=== PATIENT | male | born 1950 | race Caucasian/White ===

== ENCOUNTER 2016-12-30 14:20 | Emergency (ER) | payer OTHER, BC ==
[2016-12-30 14:26] VITALS: BP 117/75; PULSE 63; TEMP 97.7; BMI 28.8
--- NOTE | 2016-12-30 14:31 | PDOC ---
History of Present Illness - General History Source: Patient Exam Limitations: No Limitations <Camryn Guido - Last Filed: 12/30/16 14:38> - General History Source: Patient Exam Limitations: No Limitations - History of Present Illness Initial Comments: 12/30/16 14:48 PAtient is a 66 yo left hand dominant male with a significant PMH of diabetes, skin cancer, HIV and depression who presents to the ED with a complaints of a lesion on his right forearm for one day. Patient reports he developed a bump on his right forearm that he describes as itchy and red. He reports taking Benadryl with slight relief. He states the redness does not go away and has remained constant in its intensity. He does not think it is a mosquito bite. He denies going outside. He denies any new lotion, detergent or soap contacting his arm. He denies fever, chills, pain. He denies nausea, vomiting, or diarrhea. <Ramy Stokes - Last Filed: 12/30/16 14:56> - General Chief Complaint: Rash Stated Complaint: RFA RASH Time Seen by Provider: 12/30/16 14:22 Past History - Past Medical History Cancer: Yes (SKIN CANCER) Diabetes: Yes (diabetic neuropathy) HIV: Yes Psychiatric Problems: Yes (DEPRESSION) - Immunization History Immunization Up to Date: No - Psycho/Social/Smoking Cessation Hx Anxiety: Yes Suicidal Ideation: No Smoking History: Never smoked Have you smoked in the past 12 months: No Number of Cigarettes Smoked Daily: 0 Information on smoking cessation initiated: No Hx Alcohol Use: No Drug/Substance Use Hx: No Substance Use Type: None Hx Substance Use Treatment: No <Camryn Guido - Last Filed: 12/30/16 14:38> <Ramy Stokes - Last Filed: 12/30/16 14:56> - Past Medical History Allergies/Adverse Reactions: Allergies Allergy/AdvReac Type Severity Reaction Status Date / Time Tetracyclines Allergy Verified 12/30/16 14:21 Home Medications: Ambulatory Orders Abacavir/Dolutegravir/Lamivudi [Triumeq Tablet] 1 each PO DAILY 08/22/15 Cholecalciferol (Vitamin D3) [Vitamin D] 1,000 unit PO DAILY 08/22/15 Diazepam 7.5 mg PO DAILY 08/22/15 Diazepam [Valium] 2.5 mg PO ONCE 08/22/15 Diazepam [Valium] 5 mg PO ONCE 08/22/15 Divalproex [Depakote -] 500 mg PO BID 08/22/15 Duloxetine HCl [Cymbalta] 60 mg PO BID 08/22/15 Gabapentin 300 mg PO TID 08/22/15 Metformin HCl [Glucophage] 500 mg PO BID 08/22/15 Multivitamins [Tab-A-Vit -] 1 tab PO DAILY 08/22/15 Thiamine HCl [Vitamin B1] 100 mg PO DAILY 08/22/15 Trazodone HCl 100 mg PO BID 08/22/15 Zolpidem Tartrate [Ambien] 10 mg PO HS 08/22/15 Diphenhydramine [Benadryl 1% Cream -] 1 applic TP BID #1 tube 12/30/16 Hydrocortisone 0.5% Ointment [Hytone 0.5% Ointment -] 1 applic TP BID #1 tube Review of Systems - Review of Systems Able to Perform ROS?: Yes Comments:: 12/30/16 14:49 GENERAL/CONSTITUTIONAL: No: fever, chills, weakness, loss of appetite. MUSCULOSKELETAL: No: back pain, neck pain, joint pain, muscle swelling or pain SKIN: + lesions, itching, redness pallor, rash or easy bruising. All Other Systems: Reviewed and Negative <Ramy Stokes - Last Filed: 12/30/16 14:56> *Physical Exam - Vital Signs Last Vital Signs Temp Pulse Resp BP Pulse Ox 97.7 F 63 18 117/75 99 12/30/16 14:20 12/30/16 14:20 12/30/16 14:20 12/30/16 14:20 12/30/16 14:20 <Camryn Guido - Last Filed: 12/30/16 14:38> - Vital Signs Last Vital Signs Temp Pulse Resp BP Pulse Ox 97.7 F 63 18 117/75 99 12/30/16 14:20 12/30/16 14:20 12/30/16 14:20 12/30/16 14:20 12/30/16 14:20 - Physical Exam Comments: 12/30/16 14:49 GENERAL: The patient is in no acute distress. HEAD: Normal with no signs of trauma. EYES: PERRLA, EOMI, sclera anicteric, conjunctiva clear. ENT: Ears normal, nares patent, oropharynx clear without exudates. Moist mucous membranes. NECK: Normal range of motion, supple without lymphadenopathy, JVD, or masses. LUNGS: Breath sounds equal, clear to auscultation bilaterally. No wheezes, and no crackles. HEART:Regular rate and rhythm, normal S1 and S2 without murmur, rub or gallop. ABDOMEN: Soft, nontender, normoactive bowel sounds. No guarding, no rebound. EXTREMITIES: Normal range of motion, no edema. No clubbing or cyanosis. No erythema, or tenderness. NEUROLOGICAL: Cranial nerves II through XII grossly intact. Normal speech. No focal neurological deficits. MUSCULOSKELETAL: Back nontender to palpation, no CVA tenderness SKIN: + 1cm indurated erythematous skin lesion Warm, Dry, normal turgor, no rashes.. <Ramy Stokes - Last Filed: 12/30/16 14:56> Medical Decision Making - Medical Decision Making 12/30/16 14:31 A portion of this note was documented by scribe services under my direction. I have reviewed the details of the note, within reason, and agree with the documentation with the following case summary and management plan written by me. Nursing documentation reviewed and incorporated into medical decision making 12/30/16 14:38 66 to LHD m presenting to the ER with 1 cm erythematous lesion on forearm NO arthropod bites no fevers or chills NO increase in size Began yesterday No prior episodes like this Will discharge on topical treatment and warm compresses Follow up with PMD <Camryn Guido - Last Filed: 12/30/16 14:38> *DC/Admit/Observation/Transfer - Discharge Dispostion Admit: No <Camryn Guido - Last Filed: 12/30/16 14:38> - Attestations Scribe Attestion: 12/30/16 14:50 Documentation prepared by Ramy Stokes, acting as medical librarian for Camryn Guido MD. <Ramy Stokes - Last Filed: 12/30/16 14:56> Diagnosis at time of Disposition: Rash - Discharge Dispostion Disposition: HOME Condition at time of disposition: Stable - Prescriptions Prescriptions: Diphenhydramine [Benadryl 1% Cream -] 1 applic TP BID #1 tube Hydrocortisone 0.5% Ointment [Hytone 0.5% Ointment -] 1 applic TP BID #1 tube - Referrals Referrals: Felicitas Medeiros MD [Primary Care Provider] - - Patient Instructions Printed Discharge Instructions: DI for Rash, DI for Contact Dermatitis Additional Instructions: Mr. Santacruz Thank you for coming in to the ER Please apply both ointments to your rash Please apply warm compresses twice per day Please follow up with your primary care physician within 1 -2 days Return to the ER for redness that increases in size, fevers, chills, drainage, any other concerns or complaints
== END 2016-12-30 14:58 | disposition home or self-care (01) ==
LOC: SUPCPDRO 14:20 → FER 14:20
DX: R21 Rash and other nonspecific skin eruption (principal); E11.9 Type 2 diabetes mellitus without complications; Z21 Asymptomatic human immunodeficiency virus [HIV] infection status; F32.9 Major depressive disorder, single episode, unspecified; Z85.828 Personal history of other malignant neoplasm of skin
CPT/HCPCS: 72148-TC; 99282-25

== ENCOUNTER 2018-10-27 12:41 | Emergency (ER) | payer OTHER, BC | END 2018-10-27 15:20 | disposition home or self-care (01) | LOC: FER 12:41 ==

== ENCOUNTER 2024-06-01 03:59 | Inpatient (IN) | payer OTHER, BC ==
[2024-06-01] MEDS ORDERED: THROMBIN (BOVINE) 20,000 UNIT VIAL TP ONE ×2 (07:23→13:56)
[2024-06-01] MEDS ORDERED: ceFAZolin SODIUM 1 GM VIAL ONE ×3 (07:23→16:41)
[2024-06-01] MEDS ORDERED: DEXMEDETOMIDINE HCL 200 MCG/2 ML IVPB ONE (08:00)
[2024-06-01] MEDS ORDERED: ROCURONIUM BROMIDE 50 MG/5 ML VIAL ONE ×3 (08:02→14:57)
[2024-06-01] MEDS ORDERED: MIDAZOLAM HCL 2 MG/2 ML SINGLE DOSE VIAL ONE (08:03)
[2024-06-01] MEDS ORDERED: PROPOFOL 40 ML ONE (08:03)
[2024-06-01] MEDS ORDERED: HYDROmorphone HCl 2 MG/ML VIAL ONE (08:07)
[2024-06-01] MEDS ORDERED: EPINEPHrine 1:1000 P/F - 1 MG/ML AMP ONE (09:26)
[2024-06-01] MEDS ORDERED: PROPOFOL 20 ML ONE ×14 (09:29→18:37)
[2024-06-01] MEDS: ceFAZolin SODIUM 1 GM VIAL IVPB ONE ×2 (09:37→10:16)
[2024-06-01] MEDS: HYDROGEN PEROXIDE 473 ML PO ONE (10:17)
[2024-06-01] MEDS: THROMBIN (BOVINE) 20,000 UNIT VIAL TP ONE (10:17)
[2024-06-01] MEDS: EPINEPHrine 1:1,000 1,000 MCG/ML ML SQ ONE (10:18)
[2024-06-01] MEDS: ALBUMIN HUMAN 5% 250 ML IV SOLUTION IV ONE (12:15)
[2024-06-01 12:44] LABS: HEMATOCRIT 30.7 % (35.4-49); HEMOGLOBIN 10.7 GM/dL (11.7-16.9); MCH 34.4 pg (25.7-33.7); MCHC 34.8 g/dl (32.0-35.9); MEAN CELL VOLUME 98.7 fl (80-96); MEAN PLT VOLUME 7.4 fl (7.5-11.1); PLATELET COUNT 116 10^3/uL (134-434); RBC 3.11 M/mm3 (4.00-5.60); RDW 13.5 % (11.9-15.9); WHITE BLOOD COUNT 3.3 K/mm3 (4.0-10.0)
[2024-06-01] MEDS ORDERED: PHENYLEPHRINE HCL 10 MG/1 ML SINGLE DOSE VIAL ONE (12:44)
[2024-06-01 14:35] LABS: ARTERIAL BLD GAS O2 SATURATION 99.8 % (95-98); ARTERIAL BLOOD GAS PO2 453.6 mmHg (80-100); ARTERIAL BLOOD GAS pH 7.312 (7.350-7.450)
[2024-06-01] MEDS ORDERED: SUGAMMADEX SODIUM 200 MG/2 ML VIAL ONE (15:11)
[2024-06-01] MEDS ORDERED: TRANEXAMIC ACID 1000 MG/10 ML VIAL ONE (15:12)
[2024-06-01] MEDS ORDERED: SEVOFLURANE 250 ML BTL ONE (15:17)
[2024-06-01] MEDS ORDERED: DEXAMETHASONE SOD PHOSPHATE 4 MG/1 ML VIAL ONE (15:19)
[2024-06-01] MEDS ORDERED: ONDANSETRON 4 MG/2 ML VIAL ONE ×2 (15:19→17:25)
[2024-06-01] MEDS ORDERED: LIDOCAINE HCL/PF 2% SDV 5ML VIAL ONE (15:19)
[2024-06-01 16:52] LABS: HEMATOCRIT 34.7 % (35.4-49); MCH 33.4 pg (25.7-33.7); MCHC 34.7 g/dl (32.0-35.9); MEAN CELL VOLUME 96.4 fl (80-96); MEAN PLT VOLUME 7.6 fl (7.5-11.1); PLATELET COUNT 128 10^3/uL (134-434); RDW 14.6 % (11.9-15.9); WHITE BLOOD COUNT 4.5 K/mm3 (4.0-10.0)
[2024-06-01] MEDS ORDERED: ONDANSETRON 4 MG/2 ML VIAL IVPUSH PRN ×2 (17:52→19:44)
[2024-06-01 17:54] LABS: POTASSIUM 4.8 mmol/L (3.5-5.1)
[2024-06-01 17:56] LABS: ALBUMIN 2.6 g/dl (3.4-5.0); CALCIUM 7.8 mg/dL (8.5-10.1)
[2024-06-01 17:57] LABS: BLOOD UREA NITROGEN 13.7 mg/dL (7-18); MAGNESIUM 1.7 mg/dL (1.8-2.4)
[2024-06-01 18:00] LABS: PHOSPHOROUS 3.2 mg/dL (2.5-4.9)
[2024-06-01 18:01] LABS: BILIRUBIN,TOTAL 0.5 mg/dL (0.2-1); TOT PROT 5.1 g/dl (6.4-8.2)
[2024-06-01 18:04] LABS: CREATININE 0.6 mg/dL (0.55-1.3)
[2024-06-01] MEDS ORDERED: MAGNESIUM SULF 50% (8.12 MEQ/2 ML-1 GM VIAL) ONE (18:29)
[2024-06-01] MEDS: LACTATED RINGERS SOLUTION 1,000 ML IV SCH (23:38)
[2024-06-01] MEDS: HYDROmorphone *PCA* 10MG/50ML DISP.SYRIN PCA SCH (23:38)
[2024-06-02] MEDS: CEFAZOLIN 2 GM/D5W 2 GM/50 ML ML IVPB SCH ×2 (01:17→20:22)
[2024-06-02] MEDS: LACTATED RINGERS SOLUTION 1,000 ML IV SCH (01:23)
[2024-06-02] MEDS: LACTATED RINGERS SOLUTION 1,000 ML/1,000 ML INFUS.BAG IV SCH (01:24)
[2024-06-02] MEDS: ALBUMIN HUMAN 5% 250 ML IV SOLUTION IV ONE (01:24)
[2024-06-02] MEDS: oxyCODONE HCL 5 MG TABLET PO PRN (03:58)
[2024-06-02] MEDS: GABAPENTIN 300 MG CAPSULE PO SCH (06:17)
[2024-06-02] MEDS: SODIUM CHLORIDE 250 ML IV STA (06:25)
[2024-06-02] MEDS: NOREPINEPHRINE BITARTRATE 4,000 MCG in DEXTROSE 5%-WATER - 496 ML IV SCH (06:42)
[2024-06-02 07:30] LABS: HEMATOCRIT 25.4 % (35.4-49); HEMOGLOBIN 8.8 GM/dL (11.7-16.9); MCH 33.3 pg (25.7-33.7); MCHC 34.5 g/dl (32.0-35.9); MEAN CELL VOLUME 96.3 fl (80-96); MEAN PLT VOLUME 7.8 fl (7.5-11.1); PLATELET COUNT 127 10^3/uL (134-434); RBC 2.63 M/mm3 (4.00-5.60); RDW 14.9 % (11.9-15.9); WHITE BLOOD COUNT 7.3 K/mm3 (4.0-10.0)
[2024-06-02 07:55] LABS: POTASSIUM 5.3 mmol/L (3.5-5.1)
[2024-06-02 08:00] LABS: CALCIUM 7.6 mg/dL (8.5-10.1)
[2024-06-02 08:01] LABS: BLOOD UREA NITROGEN 17.8 mg/dL (7-18)
[2024-06-02 08:04] LABS: CREATININE 1.1 mg/dL (0.55-1.3)
[2024-06-02] MEDS: ABACAVIR/DOLUTEGRAVIR/LAMIVUDI (TRIUMEQ) TABLET PO SCH (11:37)
[2024-06-02] MEDS: PNEUMOC 20-VAL CONJ-DIP CRM/PF 0.5 ML SYRINGE IM ONE (11:48)
[2024-06-02] MEDS: ACETAMINOPHEN 1000 MG/100 ML BAG IVPB PRN (13:08)
[2024-06-02 16:02] LABS: HEMATOCRIT 24.9 % (35.4-49); MCH 34.1 pg (25.7-33.7); MCHC 32.2 g/dl (32.0-35.9); MEAN CELL VOLUME 105.8 fl (80-96); MEAN PLT VOLUME 7.9 fl (7.5-11.1); PLATELET COUNT 109 10^3/uL (134-434); RBC 2.35 M/mm3 (4.00-5.60); RDW 15.7 % (11.9-15.9); WHITE BLOOD COUNT 6.6 K/mm3 (4.0-10.0)
[2024-06-02 23:48] LABS: BASO % 0.2 % (0-2.0); EOS % 0.2 % (0-4.5); HEMATOCRIT 21.4 % (35.4-49); HEMOGLOBIN 7.2 GM/dL (11.7-16.9); LYMPH % 12.5 % (8-40); MCHC 33.8 g/dl (32.0-35.9); MEAN CELL VOLUME 97.6 fl (80-96); MEAN PLT VOLUME 7.6 fl (7.5-11.1); MONO % 9.4 % (3.8-10.2); NEUT % 77.7 % (42.8-82.8); PLATELET COUNT 95 10^3/uL (134-434); RBC 2.19 M/mm3 (4.00-5.60)
[2024-06-03] MEDS: oxyCODONE HCL 5 MG TABLET PO PRN (00:36)
[2024-06-03 07:12] LABS: ALBUMIN 2.2 g/dl (3.4-5.0); BLOOD UREA NITROGEN 11.8 mg/dL (7-18); CALCIUM 7.4 mg/dL (8.5-10.1); MAGNESIUM 1.7 mg/dL (1.8-2.4)
[2024-06-03 07:15] LABS: CREATININE 0.7 mg/dL (0.55-1.3)
[2024-06-03 07:16] LABS: BILIRUBIN,TOTAL 0.5 mg/dL (0.2-1); PHOSPHOROUS 1.9 mg/dL (2.5-4.9); TOT PROT 4.2 g/dl (6.4-8.2)
[2024-06-03 07:26] LABS: BASO % 0.1 % (0-2.0); EOS % 0.2 % (0-4.5); HEMATOCRIT 19.4 % (35.4-49); LYMPH % 13.4 % (8-40); MCH 33.8 pg (25.7-33.7); MCHC 34.8 g/dl (32.0-35.9); MEAN CELL VOLUME 97.3 fl (80-96); MEAN PLT VOLUME 7.8 fl (7.5-11.1); NEUT % 76.3 % (42.8-82.8); PLATELET COUNT 95 10^3/uL (134-434); RDW 14.4 % (11.9-15.9)
[2024-06-03 08:34] LABS: HEMOGLOBIN 6.8 GM/dL (11.7-16.9)
[2024-06-03] MEDS: MAGNESIUM 2GM/50ML STERILE WATER IVPB IVPB ONE (09:08)
[2024-06-03] MEDS: NAPH,MB-DB/K PH,MBDB POWDER PACKET PO ONE (09:08)
[2024-06-03] MEDS: CEFAZOLIN 2 GM/D5W 2 GM/50 ML ML IVPB SCH (17:16)
[2024-06-03] MEDS: BREXPIPRAZOLE (REXULTI) 1 MG TABLET (RESTRICTED TO PSYCIATRY) PO SCH (18:52)
[2024-06-03 18:54] LABS: BASO % 0.2 % (0-2.0); EOS % 0.4 % (0-4.5); HEMOGLOBIN 8.8 GM/dL (11.7-16.9); LYMPH % 10.9 % (8-40); MCH 33.2 pg (25.7-33.7); MCHC 35.1 g/dl (32.0-35.9); MEAN CELL VOLUME 94.6 fl (80-96); MEAN PLT VOLUME 7.4 fl (7.5-11.1); MONO % 9.3 % (3.8-10.2); NEUT % 79.2 % (42.8-82.8); PLATELET COUNT 118 10^3/uL (134-434); RBC 2.64 M/mm3 (4.00-5.60); RDW 14.9 % (11.9-15.9); WHITE BLOOD COUNT 7.5 K/mm3 (4.0-10.0)
[2024-06-03 21:20] LABS: BASO % 0.3 % (0-2.0); EOS % 0.4 % (0-4.5); HEMATOCRIT 22.8 % (35.4-49); LYMPH % 14.6 % (8-40); MCH 32.9 pg (25.7-33.7); MCHC 34.9 g/dl (32.0-35.9); MEAN CELL VOLUME 94.2 fl (80-96); MEAN PLT VOLUME 7.3 fl (7.5-11.1); MONO % 9.3 % (3.8-10.2); NEUT % 75.4 % (42.8-82.8); PLATELET COUNT 107 10^3/uL (134-434); RBC 2.43 M/mm3 (4.00-5.60); RDW 15.1 % (11.9-15.9)
[2024-06-03] MEDS ORDERED: traZODone HCL 50 MG TABLET (FP) ONE (21:35)
[2024-06-03] MEDS: DIVALPROEX SODIUM 500 MG TABLET E.C. PO SCH (21:42)
[2024-06-03] MEDS: traZODone HCL 100 MG TABLET (FP) PO SCH (21:43)
[2024-06-03] MEDS ORDERED: diazePAM 5 MG TABLET PO SCH (22:00)
[2024-06-04] MEDS: diazePAM CARPU-JECT 10 MG/2 ML DISP.SYRIN IVPUSH PRN (04:12)
[2024-06-04] MEDS: diazePAM CARPU-JECT 10 MG/2 ML DISP.SYRIN IVPUSH ONE (07:15)
[2024-06-04 07:21] LABS: BASO % 0.2 % (0-2.0); EOS % 2.6 % (0-4.5); HEMATOCRIT 23.5 % (35.4-49); HEMOGLOBIN 8.2 GM/dL (11.7-16.9); MCH 33.6 pg (25.7-33.7); MCHC 35.1 g/dl (32.0-35.9); MEAN CELL VOLUME 95.7 fl (80-96); MEAN PLT VOLUME 7.8 fl (7.5-11.1); MONO % 9.3 % (3.8-10.2); NEUT % 66.9 % (42.8-82.8); PLATELET COUNT 115 10^3/uL (134-434); RBC 2.45 M/mm3 (4.00-5.60); RDW 15.1 % (11.9-15.9); WHITE BLOOD COUNT 5.9 K/mm3 (4.0-10.0)
[2024-06-04 07:33] LABS: POTASSIUM 3.8 mmol/L (3.5-5.1)
[2024-06-04 07:44] LABS: ALBUMIN 2.3 g/dl (3.4-5.0); BLOOD UREA NITROGEN 8.7 mg/dL (7-18); CALCIUM 7.9 mg/dL (8.5-10.1); MAGNESIUM 2.1 mg/dL (1.8-2.4)
[2024-06-04 07:48] LABS: BILIRUBIN,TOTAL 0.4 mg/dL (0.2-1); CREATININE 0.6 mg/dL (0.55-1.3); TOT PROT 4.9 g/dl (6.4-8.2)
[2024-06-04] MEDS: HYDROmorphone HCL CARPU-JECT 2 MG/1 ML DISP.SYRIN IVPUSH ONE (08:46)
[2024-06-04] MEDS ORDERED: BREXPIPRAZOLE (REXULTI) 1 MG TABLET (RESTRICTED TO PSYCIATRY) PO SCH ×2 (10:00→18:00)
[2024-06-04] MEDS ORDERED: ABACAVIR/DOLUTEGRAVIR/LAMIVUDI (TRIUMEQ) TABLET PO SCH (10:00)
[2024-06-04] MEDS: DULoxetine HCL 30 MG CAPSULE.DR PO SCH (10:01)
[2024-06-04] MEDS: NAPH,MB-DB/K PH,MBDB POWDER PACKET PO ONE (10:01)
[2024-06-04] MEDS: CEFAZOLIN 2 GM/D5W 2 GM/50 ML ML IVPB SCH (13:36)
[2024-06-04] MEDS ORDERED: traZODone HCL 50 MG TABLET (FP) ONE (21:08)
[2024-06-05 07:23] LABS: BASO % 0.2 % (0-2.0); HEMATOCRIT 20.8 % (35.4-49); LYMPH % 18.2 % (8-40); MCH 32.8 pg (25.7-33.7); MCHC 33.8 g/dl (32.0-35.9); MEAN CELL VOLUME 96.9 fl (80-96); MEAN PLT VOLUME 7.3 fl (7.5-11.1); MONO % 9.8 % (3.8-10.2); NEUT % 67.8 % (42.8-82.8); PLATELET COUNT 113 10^3/uL (134-434); RBC 2.15 M/mm3 (4.00-5.60); RDW 14.9 % (11.9-15.9); WHITE BLOOD COUNT 3.5 K/mm3 (4.0-10.0)
[2024-06-05 08:09] LABS: BLOOD UREA NITROGEN 8.6 mg/dL (7-18); CALCIUM 7.7 mg/dL (8.5-10.1); MAGNESIUM 1.9 mg/dL (1.8-2.4)
[2024-06-05 08:12] LABS: BILIRUBIN,TOTAL 0.3 mg/dL (0.2-1); CREATININE 0.7 mg/dL (0.55-1.3); TOT PROT 4.7 g/dl (6.4-8.2)
[2024-06-05 08:13] LABS: PHOSPHOROUS 2.4 mg/dL (2.5-4.9)
[2024-06-05 12:21] LABS: BASO % 0.4 % (0-2.0); HEMATOCRIT 20.3 % (35.4-49); LYMPH % 20.3 % (8-40); MCH 32.9 pg (25.7-33.7); MCHC 34.1 g/dl (32.0-35.9); MEAN CELL VOLUME 96.5 fl (80-96); MEAN PLT VOLUME 7.2 fl (7.5-11.1); MONO % 11.5 % (3.8-10.2); NEUT % 62.8 % (42.8-82.8); PLATELET COUNT 115 10^3/uL (134-434); RDW 15.3 % (11.9-15.9); WHITE BLOOD COUNT 2.9 K/mm3 (4.0-10.0)
[2024-06-05 12:35] LABS: HEMOGLOBIN 6.9 GM/dL (11.7-16.9)
[2024-06-05] MEDS ORDERED: traZODone HCL 50 MG TABLET (FP) ONE (21:37)
[2024-06-05 22:13] LABS: HEMATOCRIT 23.2 % (35.4-49); HEMOGLOBIN 7.9 GM/dL (11.7-16.9); MCH 32.5 pg (25.7-33.7); MEAN CELL VOLUME 95.7 fl (80-96); MEAN PLT VOLUME 7.1 fl (7.5-11.1); PLATELET COUNT 118 10^3/uL (134-434); RBC 2.42 M/mm3 (4.00-5.60); RDW 15.7 % (11.9-15.9); WHITE BLOOD COUNT 3.3 K/mm3 (4.0-10.0)
[2024-06-05 22:40] LABS: INR 1.02 (0.83-1.09); PROTHROMBIN TIME (PATIENT) 11.5 SEC (9.7-13.0)
[2024-06-06 07:26] LABS: BASO % 0.3 % (0-2.0); EOS % 5.1 % (0-4.5); HEMATOCRIT 24.8 % (35.4-49); HEMOGLOBIN 8.6 GM/dL (11.7-16.9); LYMPH % 20.2 % (8-40); MCH 32.9 pg (25.7-33.7); MCHC 34.5 g/dl (32.0-35.9); MEAN CELL VOLUME 95.3 fl (80-96); MONO % 11.3 % (3.8-10.2); NEUT % 63.1 % (42.8-82.8); PLATELET COUNT 137 10^3/uL (134-434); RDW 15.7 % (11.9-15.9); WHITE BLOOD COUNT 3.1 K/mm3 (4.0-10.0)
[2024-06-06 07:27] LABS: POTASSIUM 4.3 mmol/L (3.5-5.1)
[2024-06-06 07:35] LABS: ALBUMIN 2.2 g/dl (3.4-5.0)
[2024-06-06 07:36] LABS: BLOOD UREA NITROGEN 7.6 mg/dL (7-18)
[2024-06-06 07:37] LABS: BILIRUBIN,TOTAL 0.4 mg/dL (0.2-1); MAGNESIUM 2.1 mg/dL (1.8-2.4); TOT PROT 5.1 g/dl (6.4-8.2)
[2024-06-06 07:39] LABS: CREATININE 0.6 mg/dL (0.55-1.3)
[2024-06-06] MEDS ORDERED: ACETAMINOPHEN INJECTION 100 ML ONE (13:03)
[2024-06-06] MEDS: oxyCODONE HCL 5 MG TABLET PO PRN (13:45)
[2024-06-06] MEDS ORDERED: traZODone HCL 50 MG TABLET (FP) ONE (20:32)
[2024-06-07] MEDS: ACETAMINOPHEN 1000 MG/100 ML BAG IVPB PRN (02:00)
[2024-06-07 07:23] LABS: HEMATOCRIT 22.4 % (35.4-49); MCH 33.5 pg (25.7-33.7); MCHC 35.7 g/dl (32.0-35.9); MEAN CELL VOLUME 94.1 fl (80-96); MEAN PLT VOLUME 6.7 fl (7.5-11.1); PLATELET COUNT 127 10^3/uL (134-434); RBC 2.38 M/mm3 (4.00-5.60); RDW 15.3 % (11.9-15.9); WHITE BLOOD COUNT 2.7 K/mm3 (4.0-10.0)
[2024-06-07 07:29] LABS: ALBUMIN 2.1 g/dl (3.4-5.0); BLOOD UREA NITROGEN 9.4 mg/dL (7-18); CALCIUM 8.1 mg/dL (8.5-10.1); MAGNESIUM 1.9 mg/dL (1.8-2.4)
[2024-06-07 07:33] LABS: CREATININE 0.6 mg/dL (0.55-1.3)
[2024-06-07 07:34] LABS: BILIRUBIN,TOTAL 0.4 mg/dL (0.2-1); TOT PROT 4.9 g/dl (6.4-8.2)
[2024-06-07 08:31] LABS: PHOSPHOROUS 2.9 mg/dL (2.5-4.9)
[2024-06-07] MEDS: LIDOCAINE 5% TOPICAL PATCH TP SCH (09:39)
[2024-06-07 09:55] LABS: ANISOCYTOSIS 0; MACROCYTOSIS 0
[2024-06-07] MEDS ORDERED: LIDOCAINE 4% PATCH TP PRN (11:32)
[2024-06-07] MEDS ORDERED: GABAPENTIN 400 MG CAPSULE PO SCH (11:47)
[2024-06-07] MEDS: GABAPENTIN 300 MG CAPSULE PO SCH (13:01)
[2024-06-07 13:33] VITALS: BMI 34.2
[2024-06-07] MEDS ORDERED: ONDANSETRON 4 MG/2 ML VIAL IVPUSH PRN (16:25)
[2024-06-07] MEDS ORDERED: diazePAM CARPU-JECT 10 MG/2 ML DISP.SYRIN IVPUSH PRN (16:25)
[2024-06-07] MEDS: CEFAZOLIN 2 GM/D5W 2 GM/50 ML ML IVPB SCH (18:02)
[2024-06-07] MEDS: DIVALPROEX SODIUM 500 MG TABLET E.C. PO SCH (21:29)
[2024-06-07] MEDS: traZODone HCL 100 MG TABLET (FP) PO SCH (21:29)
[2024-06-07] MEDS: oxyCODONE HCL 5 MG TABLET PO PRN (21:30)
[2024-06-07] MEDS: HEPARIN NA (PORCINE) 5,000 UNITS/ML 1ML VIAL SQ SCH (21:32)
[2024-06-07] MEDS: LIDOCAINE PATCH REMOVAL MC SCH (21:45)
[2024-06-07] MEDS ORDERED: LIDOCAINE PATCH REMOVAL MC SCH (22:00)
[2024-06-07] MEDS ORDERED: LIDOCAINE PATCH REMOVAL MC PRN ×2 (22:00)
[2024-06-08] MEDS: ACETAMINOPHEN 1000 MG/100 ML BAG IVPB ONE (02:22)
[2024-06-08] MEDS ORDERED: PROPOFOL 1,000,000 MCG/100 ML VIAL ONE (06:26)
[2024-06-08] MEDS ORDERED: RAPID SEQUENCE INTUBATION KIT NR ONE (06:26)
[2024-06-08] MEDS: BACLOFEN 10 MG TABLET (FP) PO PRN (08:10)
[2024-06-08] MEDS: LIDOCAINE 4% PATCH TP PRN (08:10)
[2024-06-08] MEDS: ABACAVIR/DOLUTEGRAVIR/LAMIVUDI (TRIUMEQ) TABLET PO SCH (08:11)
[2024-06-08 08:28] LABS: BASO % 0.6 % (0-2.0); EOS % 5.4 % (0-4.5); HEMATOCRIT 23.7 % (35.4-49); HEMOGLOBIN 8.2 GM/dL (11.7-16.9); LYMPH % 20.5 % (8-40); MCH 32.8 pg (25.7-33.7); MCHC 34.8 g/dl (32.0-35.9); MEAN CELL VOLUME 94.4 fl (80-96); MEAN PLT VOLUME 6.6 fl (7.5-11.1); NEUT % 60.5 % (42.8-82.8); PLATELET COUNT 166 10^3/uL (134-434); RBC 2.51 M/mm3 (4.00-5.60); RDW 15.2 % (11.9-15.9); WHITE BLOOD COUNT 3.1 K/mm3 (4.0-10.0)
[2024-06-08 08:52] LABS: ALBUMIN 2.1 g/dl (3.4-5.0); BLOOD UREA NITROGEN 8.4 mg/dL (7-18); CALCIUM 8.2 mg/dL (8.5-10.1); MAGNESIUM 1.9 mg/dL (1.8-2.4)
[2024-06-08 08:53] LABS: CREATININE 0.6 mg/dL (0.55-1.3)
[2024-06-08 08:55] LABS: TOT PROT 4.9 g/dl (6.4-8.2)
[2024-06-08 08:57] LABS: BILIRUBIN,TOTAL 0.3 mg/dL (0.2-1)
[2024-06-08] MEDS: DULoxetine HCL 30 MG CAPSULE.DR PO SCH (09:19)
[2024-06-08] MEDS: ENOXAPARIN NA (PORCINE) 40 MG/0.4 ML DISP.SYRIN SQ SCH (09:19)
[2024-06-08] MEDS: LIDOCAINE 5% TOPICAL PATCH TP SCH (09:20)
[2024-06-08] MEDS: BREXPIPRAZOLE (REXULTI) 1 MG TABLET (RESTRICTED TO PSYCIATRY) PO SCH (09:21)
[2024-06-08] MEDS: DOCUSATE SODIUM 100 MG CAPSULE (FP) PO SCH (15:34)
[2024-06-08] MEDS: BACITRACIN ZINC 15 GM TUBE TOPICAL OINTMENT TP SCH (15:34)
[2024-06-08] MEDS: POLYETHYLENE GLYCOL (HEALTHYLAX) 3350 17 GM PACKET PO SCH (15:35)
[2024-06-08] MEDS: SILVER SULFADIAZINE 1% TOP CREAM 400 GM JAR TP SCH (21:55)
[2024-06-09] MEDS ORDERED: ACETAMINOPHEN 1000 MG/100 ML BAG IVPB PRN (07:11)
[2024-06-09] MEDS: ACETAMINOPHEN 500 MG TABLET (FP) PO SCH (08:46)
[2024-06-09 09:25] LABS: HEMATOCRIT 24.4 % (35.4-49); HEMOGLOBIN 8.4 GM/dL (11.7-16.9); MCHC 34.4 g/dl (32.0-35.9); MEAN CELL VOLUME 95.9 fl (80-96); MEAN PLT VOLUME 6.8 fl (7.5-11.1); PLATELET COUNT 192 10^3/uL (134-434); RBC 2.55 M/mm3 (4.00-5.60); RDW 14.9 % (11.9-15.9)
[2024-06-09] MEDS: MULTIVITAMINS (DAILY MVI) TABLET (FP) PO SCH (09:50)
[2024-06-09] MEDS: oxyCODONE HCL 5 MG TABLET PO PRN (09:51)
[2024-06-09 09:57] LABS: ALBUMIN 2.2 g/dl (3.4-5.0)
[2024-06-09 09:58] LABS: CALCIUM 8.3 mg/dL (8.5-10.1)
[2024-06-09 09:59] LABS: BLOOD UREA NITROGEN 7.5 mg/dL (7-18)
[2024-06-09 10:01] LABS: BILIRUBIN,TOTAL 0.5 mg/dL (0.2-1); TOT PROT 5.1 g/dl (6.4-8.2)
[2024-06-09 10:02] LABS: CREATININE 0.6 mg/dL (0.55-1.3)
[2024-06-09 10:11] LABS: POTASSIUM 3.9 mmol/L (3.5-5.1)
[2024-06-10] MEDS: diazePAM 5 MG TABLET PO PRN
[2024-06-10 09:09] LABS: HEMATOCRIT 23.4 % (35.4-49); HEMOGLOBIN 8.1 GM/dL (11.7-16.9); MCH 32.9 pg (25.7-33.7); MCHC 34.7 g/dl (32.0-35.9); MEAN CELL VOLUME 94.8 fl (80-96); MEAN PLT VOLUME 6.7 fl (7.5-11.1); PLATELET COUNT 205 10^3/uL (134-434); RBC 2.47 M/mm3 (4.00-5.60); WHITE BLOOD COUNT 3.1 K/mm3 (4.0-10.0)
[2024-06-10 09:21] LABS: POTASSIUM 3.7 mmol/L (3.5-5.1)
[2024-06-10 09:25] LABS: ALBUMIN 2.2 g/dl (3.4-5.0); BLOOD UREA NITROGEN 11.3 mg/dL (7-18); CALCIUM 7.9 mg/dL (8.5-10.1)
[2024-06-10 09:28] LABS: CREATININE 0.6 mg/dL (0.55-1.3)
[2024-06-10 09:31] LABS: BILIRUBIN,TOTAL 0.4 mg/dL (0.2-1); TOT PROT 4.8 g/dl (6.4-8.2)
[2024-06-10 09:49] LABS: ANISOCYTOSIS 1+
[2024-06-10] MEDS: FERROUS SO4 325 MG TABLET (FP) PO SCH (16:49)
[2024-06-10] MEDS: METHYL SALICYLATE/MENTHOL 30 GM TUBE TP SCH (16:50)
[2024-06-11 09:13] LABS: HEMATOCRIT 25.9 % (35.4-49); HEMOGLOBIN 8.8 GM/dL (11.7-16.9); MCH 32.5 pg (25.7-33.7); MCHC 33.9 g/dl (32.0-35.9); MEAN CELL VOLUME 96.1 fl (80-96); PLATELET COUNT 244 10^3/uL (134-434); RBC 2.69 M/mm3 (4.00-5.60); RDW 15.2 % (11.9-15.9); WHITE BLOOD COUNT 3.1 K/mm3 (4.0-10.0)
[2024-06-11 09:30] LABS: POTASSIUM 3.9 mmol/L (3.5-5.1)
[2024-06-11 10:03] LABS: CALCIUM 8.2 mg/dL (8.5-10.1)
[2024-06-11 10:04] LABS: ALBUMIN 2.3 g/dl (3.4-5.0); BLOOD UREA NITROGEN 8.6 mg/dL (7-18)
[2024-06-11 10:07] LABS: CREATININE 0.6 mg/dL (0.55-1.3)
[2024-06-11 10:09] LABS: BILIRUBIN,TOTAL 0.4 mg/dL (0.2-1)
[2024-06-11 10:25] LABS: ANISOCYTOSIS 1+; MACROCYTOSIS 0
[2024-06-11 14:55] VITALS: BP 119/70; PULSE 86; RESP 20; TEMP 97.7
== END 2024-06-11 14:44 | DRG 457 ==
LOC: J2C 03:59 → JICU 23:15 → J8W 06-07 15:51
PROVIDERS: ADMIT Orthopaedic Surgery Orthopaedic Surgery of the Spine; ATTEND Nurse Practitioner Family
PROC: 0SG3071 Fusion of Lumbosacral Joint with Autologous Tissue Substitute, Posterior Approach, Posterior Column, Open Approach (ICD-10-PCS; 2024-06-01)
PROC: XNH New Technology, Bones, Insertion (ICD-10-PCS; 2024-06-01)
PROC: XNH New Technology, Bones, Insertion (ICD-10-PCS; 2024-06-01)
PROC: 00NY0ZZ Release Lumbar Spinal Cord, Open Approach (ICD-10-PCS; 2024-06-01)
PROC: 0KXG0ZZ Transfer Left Trunk Muscle, Open Approach (ICD-10-PCS; 2024-06-01)
PROC: 0KXF0ZZ Transfer Right Trunk Muscle, Open Approach (ICD-10-PCS; 2024-06-01)
PROC: 0QU307Z Supplement Left Pelvic Bone with Autologous Tissue Substitute, Open Approach (ICD-10-PCS; 2024-06-01)
PROC: 0QU Lower Bones, Supplement (ICD-10-PCS; 2024-06-01)
PROC: 4A11X4G Monitoring of Peripheral Nervous Electrical Activity, Intraoperative, External Approach (ICD-10-PCS; 2024-06-01)
PROC: 0SG1071 Fusion of 2 or more Lumbar Vertebral Joints with Autologous Tissue Substitute, Posterior Approach, Posterior Column, Open Approach (ICD-10-PCS; principal; 2024-06-01 08:00)
PROC: 30233N1 Transfusion of Nonautologous Red Blood Cells into Peripheral Vein, Percutaneous Approach (ICD-10-PCS; 2024-06-03)
DX: M54.16 Radiculopathy, lumbar region (principal); D62 Acute posthemorrhagic anemia; M41.56 Other secondary scoliosis, lumbar region; I10 Essential (primary) hypertension; M48.062 Spinal stenosis, lumbar region with neurogenic claudication; I95.89 Other hypotension; F32.A Depression, unspecified; E11.42 Type 2 diabetes mellitus with diabetic polyneuropathy; E87.5 Hyperkalemia; Z21 Asymptomatic human immunodeficiency virus [HIV] infection status
CPT/HCPCS: 0241U-QW; 36415; 36430; 36600; 70450-TC; 72131-TC; 80048; 80053; 82803; 82962; 83036; 83735; 84100; 85025; 85027; 85610; 86140; 86850; 86900; 86901; 86922; 87481; 90677; 93005; 93010; 94010; 94760; 97116-GP; 97162-GP; C1713; C1889; G0009; J0131; J0475; J1644; P9017; P9038; P9058